=== PATIENT | female | born 2000 | race Hispanic/Latino ===

== ENCOUNTER 2021-07-16 22:09 | Emergency (ER) | payer OTHER ==
[2021-07-16] MEDS ORDERED: Dexamethasone 10 MG/ML VIAL ONE (22:30)
== END 2021-07-16 23:10 | disposition home or self-care (01) ==
LOC: CSHERS 22:09
DX: J45.901 Unspecified asthma with (acute) exacerbation (principal)
CPT/HCPCS: J1100; J7620